=== PATIENT | female | born 1965 | race Caucasian/White ===

== ENCOUNTER 2017-03-20 17:55 | Emergency (ER) | payer SELFPAY ==
[~2017-03-20] VITALS: Ht 165.1 cm; Wt 78.0 kg
[2017-03-20 18:02] VITALS: BP 155/68; PULSE 81; RESP 16; TEMP 98.3; O2SAT 99
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
[2017-03-20] MEDS ORDERED: oxyCODONE/ACETAMINOPHEN 5 MG/325 MG TAB PO ONE (18:45)
--- NOTE | 2017-03-20 18:56 | RADRPT ---
EXAM DATE/TIME: 03/20/2017 18:46 [facility] COMPARISON: No previous studies available for comparison. INDICATIONS : Right ankle pain after patient fell off of a ladder today MEDICAL HISTORY : None. SURGICAL HISTORY : None. ENCOUNTER: Initial ACUITY: 1 day PAIN SCORE: 10/10 LOCATION: Right lateral ankle FINDINGS: There is soft tissue swelling of the lateral malleolus. No acute bony abnormality is identified. Ankl e mortise intact. CONCLUSION: 1. Soft tissue swelling of the right ankle laterally. No acute fracture identified. Moises Raman MD on March 20, 2017 at 18:53 Board Certified Radiologist. This report was verified electronically.
--- NOTE | 2017-03-20 19:09 | RADRPT ---
EXAM DATE/TIME: 03/20/2017 18:51 [facility] COMPARISON: No previous studies available for comparison. INDICATIONS : Right hip pain after patient fell off of a ladder today MEDICAL HISTORY : None. SURGICAL HISTORY : None. ENCOUNTER: Initial ACUITY: 1 day PAIN SCORE: 6/10 LOCATION: Right entire hip FINDINGS: Examination of the right hip was performed with AP Pelvis. The primary and secondary trabecular toro ramsey of the femoral neck is intact. The hip joint is of normal width without significant sclerosis or bony hypertrophy. The acetabulum is grossly intact. CONCLUSION: 1. No acute findings right hip radiograph. Moises Raman MD on March 20, 2017 at 19:06 Board Certified Radiologist. This report was verified electronically.
[2017-03-20 19:14] VITALS: BP 159/67; PULSE 76; RESP 20; O2SAT 98
[2017-03-20 20:25] VITALS: BP 148/76
== END 2017-03-20 20:47 | disposition home or self-care (01) ==
LOC: PHED 17:55
DX: S90.01XA Contusion of right ankle, initial encounter (principal); S70.01XA Contusion of right hip, initial encounter; W11.XXXA Fall on and from ladder, initial encounter; D50.9 Iron deficiency anemia, unspecified; Y92.008 Other place in unspecified non-institutional (private) residence as the place of occurrence of the external cause
CPT/HCPCS: 73502; 73610; 99284